=== PATIENT | male | born 1955 | race Caucasian/White ===

== ENCOUNTER 2016-11-09 19:29 | Emergency (ER) | payer MEDICARE, OTHER ==
[~2016-11-09] VITALS: Ht 182.8 cm; Wt 167.8 kg
[~2016-11-09 19:29] MED LIST: COUMADIN6 M2 PO; CRESTOR20 MG PO; DOXYCYCLINE MO100 M1 PO; HYDROCHLOROTHIA25 M1 PO; JANUVIA25 MG PO; LANTUS100 U/ML SC; LEVEMIR10 ML SQ; LEVOTHYROXINE0.05 MG PO; LISINOPRIL10 MG PO; NOVOLIN R100 U/ML SC; NOVOLOG MIX 70/33 ML SC; TRAMADOL50 MG PO; TRICOR145 MG PO; [UNRECOGNIZED DRUG - OTHER] INH
[2016-11-09] MEDS ORDERED: TRAMADOL HYDRO200 MG PO (19:44)
[2016-11-09] MEDS ORDERED: LASIX20 MG PO (19:45)
== END 2016-11-09 22:02 | disposition home or self-care (01) ==
LOC: ED 19:29
DX: G47.30 Sleep apnea, unspecified (principal); R06.00 Dyspnea, unspecified; I48.91 Unspecified atrial fibrillation; E11.9 Type 2 diabetes mellitus without complications; E78.5 Hyperlipidemia, unspecified; I10 Essential (primary) hypertension; E03.9 Hypothyroidism, unspecified; Z79.899 Other long term (current) drug therapy; Z79.01 Long term (current) use of anticoagulants

== ENCOUNTER → 2017-06-06 | Outpatient (CLI) | payer OTHER ==
[~2017-06-06] MED LIST changes: +LASIX20 MG PO; +TRAMADOL HYDRO200 MG PO
== END | disposition home or self-care (01) ==
LOC: CT 10:53
DX: J39.8 Other specified diseases of upper respiratory tract (principal); E11.9 Type 2 diabetes mellitus without complications

== ENCOUNTER 2020-04-12 21:25 | Inpatient (IN) | payer MEDICARE ==
[~2020-04-12] VITALS: Ht 162.6 cm; Wt 194.4 kg
[~2020-04-12 21:25] MED LIST changes: -CRESTOR20 MG PO; +CRESTOR40 M1 PO; -LEVEMIR10 ML SQ; +LEVEMIR100 UNIT/1 SQ
[2020-04-12 21:30] VITALS: BP 135/53
--- NOTE | 2020-04-12 21:40 | NUR ---
Pt placed on a 40% aerosol trach mask with humidity. Pt suctioned for a small amouth of white secretions. Pt is from home and has a #6 Shiley XLT. Duoneb tx given.
--- NOTE | 2020-04-12 22:00 | NUR ---
Trach care done. Pt site cleaned. Area is red underneath the trach site and under the trach ties. Trach ties also changed. Inner cannula changed by in the ER.
[2020-04-12 22:16] LABS: ACT PARTIAL THROMBO TIME 23.6 SECONDS (20.0-32.1); INTERNATIONAL NORM RATIO 1.1 (2.0-3.5)
[2020-04-12 22:23] LABS: ALBUMIN 2.6 gm/dl (3.1-4.5); CREATININE 1.53 mg/dL (0.70-1.30); POTASSIUM 4.7 mmol/L (3.5-5.1); TOTAL PROTEIN 6.9 gm/dL (6.4-8.2)
[2020-04-12 22:25] LABS: TROPONIN I 0.149 ng/ml (<0.045)
[2020-04-12 22:46] LABS: HEMATOCRIT 34.1 % (42.0-52.0); MEAN CELL VOLUME 87.2 fl (80.0-94.0); MEAN CORPUSCULAR HGB 26.6 pg (27.0-31.0); MEAN CORPUSCULAR HGB CONC 30.5 g/dl (33.0-37.0); MEAN PLATELET VOLUME 10.4 fl (9.6-12.3); PLATELET COUNT AUTOMATED 215 10*3/uL (130-400); RED BLOOD COUNT 3.91 10*6/uL (4.50-5.90); RED CELL DISTRI WIDTH 15.3 % (0-14.5); WHITE BLOOD COUNT 25.3 10*3/uL (4.8-10.8)
[2020-04-12 22:58] VITALS: BP 129/76
[2020-04-12 23:04] LABS: PLATELET SUFFICIENCY NORMAL (NORMAL); TOTAL CELLS COUNTED 100 #CELLS
[2020-04-12 23:38] VITALS: BP 113/50
--- NOTE | 2020-04-13 00:25 | NUR ---
SPOKE WITH PATIENT AND AT THIS TIME REGARDING PLACEMENT OF A CATHETER, PER PATIENT NOT SURE IF PATIENT IS GOING TO BE ABLE TO HAVE A CATHETER PLACED DUE TO EDEMA. PATIENT AND DO NOT CURRENTLY WANT TO ATTEMPT TO PLACE CHUNG.
--- NOTE | 2020-04-13 01:32 | NUR ---
HEPARIN AND IV ABX LATE. PATIENT NOT ON THE FLOOR YET. STILL IN ER. WILL ADMINISTER ONCE PATIENT ARRIVES TO FLOOR.
[2020-04-13 02:00] VITALS: BP 104/47
--- NOTE | 2020-04-13 02:00 | NUR ---
A 65, admitted to , under the services of HIEN Goddard DO with a diagnosis of CHF, NSTEMI, ACUTE RESPIRATORY DISTRESS. Chief complaint is RESPIRATORY ILLNESS. Patient arrived via stretcher from ER. Monitor applied. Initial assessment completed. Vital signs taken and recorded. HIEN GODDARD DO notified of admission to the unit. Orders received. See assessment for past medical history, medications and allergies. Patient and/or family oriented to unit. [address] visitation policy reviewed. Clothing/patient valuable form completed. TRACH CARE PERFORMED BY RESPIRATORY THERAPIST, HEPARIN STARTED. JANNETTE RED
--- NOTE | 2020-04-13 02:20 | NUR ---
SIZE 16 CHUNG PLACED BY NURSE ANDREW BEJARANO. PATIENT TOLERATED WELL. YELLOW URINE DRAINING.
--- NOTE | 2020-04-13 02:30 | NUR ---
HEPARIN STARTED. APTT PUT IN FOR 0830 PER PROTOCOL.
[2020-04-13 02:53] LABS: BILIRUBIN NEGATIVE (NEGATIVE); BLOOD 3+ (NEGATIVE); CLARITY CLEAR (CLEAR); COLOR YELLOW (YELLOW); GLUCOSE NEGATIVE (NEGATIVE); KETONE NEGATIVE (NEGATIVE); LEUKO ESTERASE NEGATIVE (NEGATIVE); NITRITE NEGATIVE (NEGATIVE); UROBILINOGEN 0.2 E.U./dl (0.2-1.0)
--- NOTE | 2020-04-13 02:54 | NUR ---
PATIENT DOES NOT KNOW HOME MEDICATIONS. HE STATED TO CALL HIS AND ASK HER WHAT HE TAKES. WILL CALL IN THE MORNING.
[2020-04-13 03:02] LABS: RBC 16-20 rbc/hpf (0-2)
[2020-04-13 03:03] LABS: WBC 0-2 wbc/hpf (0-5)
--- NOTE | 2020-04-13 03:15 | NUR ---
NOTED 2 SKIN TEARS TO PATIENT'S RIGHT CALF DURING ASSESSMENT. PHOTOS TAKEN AND WOUNDS MEASURED. PATIENT HAS REDDENED AREA UNDER GUAZE ON RIGHT SIDE OF TRACH. NO COMPLAINTS AT THIS TIME.
[2020-04-13 03:37] LABS: HEMATOCRIT 34.9 % (42.0-52.0); MEAN CELL VOLUME 89.3 fl (80.0-94.0); MEAN CORPUSCULAR HGB 26.3 pg (27.0-31.0); MEAN CORPUSCULAR HGB CONC 29.5 g/dl (33.0-37.0); MEAN PLATELET VOLUME 11.1 fl (9.6-12.3); PLATELET COUNT AUTOMATED 235 10*3/uL (130-400); RED BLOOD COUNT 3.91 10*6/uL (4.50-5.90); RED CELL DISTRI WIDTH 15.6 % (0-14.5)
[2020-04-13 03:45] LABS: CREATININE 1.71 mg/dL (0.70-1.30); POTASSIUM 4.8 mmol/L (3.5-5.1)
[2020-04-13 03:55] LABS: THYROID STIM HORMONE (HS) 1.72 uIU/ml (0.358-4.75)
--- NOTE | 2020-04-13 03:58 | NUR ---
TYLENOL GIVEN FOR TEMPERATURE OF 101.4 F. WILL ASSESS EFFECTIVENESS.
[2020-04-13 04:00] VITALS: BP 104/47
--- NOTE | 2020-04-13 04:01 | NUR ---
DR. DE LA GARZA NOTIFIED OF CRITICAL TROPONIN OF 0.132
[2020-04-13 04:12] LABS: PLATELET SUFFICIENCY NORMAL (NORMAL); TOTAL CELLS COUNTED 100 #CELLS
--- NOTE | 2020-04-13 04:12 | NUR ---
PATIENT IS UNABLE TO GIVE COMPLETE LIST OF HOME MEDICATIONS. HE STATED TO CALL HIS IN THE MORNING. COMPLETED MED REC MUCH I COULD WITH MEDICATION CLAIM HISTORY.
--- NOTE | 2020-04-13 04:55 | NUR ---
TYLENOL EFFECTIVE. PATIENT'S TEMPERATURE IS 98.0 F
--- NOTE | 2020-04-13 06:00 | NUR ---
DR NOBLE'S ANSWERING SERVICE NOTIFIED OF CONSULT
--- NOTE | 2020-04-13 06:02 | NUR ---
NOTIFIED DR SANCHEZ OF CONSULT.
[2020-04-13 08:00] VITALS: BP 106/62
--- NOTE | 2020-04-13 08:05 | NUR ---
PHYSICAL THERAPY PT screen complete and chart reviewed. PT order received. Will follow. Thank you. Cynthia Sebastian,PT,DPT
--- NOTE | 2020-04-13 08:13 | NUR ---
Nursing screen received and chart reviewed. Patient admitted for acute respiratory distress. If patient has a decline in ADLs, transfers, or functional mobility, please send OT orders. Thank you. Nela Bhatt, OTR/L
--- NOTE | 2020-04-13 08:52 | NUR ---
SAMI ALONZO [id number] Please refer to the physician's history and physical for past medical history, comorbid conditions, and allergies. Diagnosis: CHF,NSTEMI,ACUTE RESIRATORY DISTRESS Pavan Score: 11,VERY HIGH RISK WOUND DESCRIPTIONS: Wound Number: 1 Location of the wound: right medial aspect of foot dry and flaky skin noted. No open areas noted at time of assessment. No drainage noted at time of assessment. Wound Number: 2 Location of the wound: right plantar aspect of foot Type of wound: stage 3 Thickness: Full Size: 5.2cm x 3.0cm x 0.4cm Tunneling: none Undermining: none Sinus Tract: none Presence of Exudate: Serosanguineous Amount: Light Color: Red Odor: None Periwound Skin Appearance: Edema Wound edges: approximated Pain (associated with wound): none at time of assessment How does patient state this happened? pt stated this has been ongoing and follows in [facility] Wound Number: 3 & 4 Location of the wound: left posterior calf Thickness: Full Size: 15.0cm x 7.0cm x 0.1cm Tunneling: none Undermining: none Sinus Tract: none Presence of Exudate: Serosanguineous Amount: None Color: Red Odor: None Periwound Skin Appearance: Edema Wound edges: approximated Pain (associated with wound): none a time of assessment How does patient state this happened? pt stated this has been ongoing and follows in [facility] Wound Number: 5 Location of the wound: abdominal fold Type of wound: fungal Thickness: Partial Size: 14.5cm x 44.0cm x 0.1cm Tunneling: none Undermining: none Sinus Tract: none Presence of Exudate: Serous Amount: Light Color: Red Odor: Musty Periwound Skin Appearance: Normal Wound edges: approximated Pain (associated with wound): none at time of assessment How does patient state this happened? pt states this is ongoing Wound Number: 6 Location of the wound: left breast Type of wound: fungal Thickness: Partial Size: 8.0cm x 25.0cm x 0.1cm Tunneling: none Undermining: none Sinus Tract: none Presence of Exudate: Serous Amount: Light Color: Red Odor: Musty Periwound Skin Appearance: Normal Wound edges: approximated Pain (associated with wound): none at time of assessment How does patient state this happened? pt states this is ongoing Bilateral lower extremities dry and flaky at time of assessment. Yellow and brown in color at time of assessment. no pain at time of assessment. Surface the patient is resting on: Isoflex SKIN PREVENTION RECOMMENDATION: 1. Pressure redistribution support surface as appropriate 2. Elevate heels 3. Remove boots/TEDS every shift and reapply 4. Head of bed 30 degrees as tolerated 5. Assess nutrition and hydration 6. Manage moisture 7. Avoid the use of containment devices while in bed 8. Use absorptive products on surfaces limit layers of linens on bed 9. Turn and reposition every 1-2 hours in bed and every 1 hour in chair as tolerated 10. Weight shifts every 15 minutes while up in chair 11. Offloading with pillows or device to keep heels elevated off bed 12. Monitor skin at least every shift 13. Inspect under medical devices twice a day WOUND TREATMENT RECOMMENDATIONS: Venous and arterial studies due to non-healing wounds Imaging studies to right foot due to non-healing wound. Consult podiatry for areas to bilateral lower extremities. Cleanse bilateral lower extremities with soap and water and apply lac hydrin bid avoid application between toes Cleanse right plantar aspect of foot and left posterior lower extremity with nss and apply therahoney sheet cover with abd pad and light wrap with kerlix daily and prn for soiling. Cleanse left breast and abdominal folds with soap and water pat areas dry then apply nystatin powder every 8 hours.
--- NOTE | 2020-04-13 09:16 | NUR ---
SAMI ALONZO [id number] Please refer to the physician's history and physical for past medical history, comorbid conditions, and allergies. Diagnosis: CHF,NSTEMI,ACUTE RESIRATORY DISTRESS Pavan Score: 11,VERY HIGH RISK WOUND DESCRIPTIONS: Wound Number: 1 Location of the wound: right medial aspect of foot dry and flaky skin noted. No open areas noted at time of assessment. No drainage noted at time of assessment. Wound Number: 2 Location of the wound: right plantar aspect of foot Type of wound: stage 3 Thickness: Full Size: 5.2cm x 3.0cm x 0.4cm Tunneling: none Undermining: none Sinus Tract: none Presence of Exudate: Serosanguineous Amount: Light Color: Red, Yellow Odor: None Periwound Skin Appearance: Edema Wound edges: approximated Pain (associated with wound): none at time of assessment How does patient state this happened? pt stated this has been ongoing and follows in [facility] Wound Number: 3 & 4 Location of the wound: left posterior calf Thickness: Full Size: 15.0cm x 7.0cm x 0.1cm Tunneling: none Undermining: none Sinus Tract: none Presence of Exudate: Serosanguineous Amount: None Color: Red, yellow Odor: None Periwound Skin Appearance: Edema Wound edges: approximated Pain (associated with wound): none a time of assessment How does patient state this happened? pt stated this has been ongoing and follows in [facility] Wound Number: 5 Location of the wound: abdominal fold Type of wound: fungal Thickness: Partial Size: 14.5cm x 44.0cm x 0.1cm Tunneling: none Undermining: none Sinus Tract: none Presence of Exudate: Serous Amount: Light Color: Red Odor: Musty Periwound Skin Appearance: edema Wound edges: approximated Pain (associated with wound): none at time of assessment How does patient state this happened? pt states this is ongoing Wound Number: 6 Location of the wound: left breast Type of wound: fungal Thickness: Partial Size: 8.0cm x 25.0cm x 0.1cm Tunneling: none Undermining: none Sinus Tract: none Presence of Exudate: Serous Amount: Light Color: Red Odor: Musty Periwound Skin Appearance: edema Wound edges: approximated Pain (associated with wound): none at time of assessment How does patient state this happened? pt states this is ongoing Bilateral lower extremities dry and flaky at time of assessment. Yellow and brown in color at time of assessment. no pain at time of assessment. Surface the patient is resting on: Isoflex SKIN PREVENTION RECOMMENDATION: 1. Pressure redistribution support surface as appropriate 2. Elevate heels 3. Remove boots/TEDS every shift and reapply 4. Head of bed 30 degrees as tolerated 5. Assess nutrition and hydration 6. Manage moisture 7. Avoid the use of containment devices while in bed 8. Use absorptive products on surfaces limit layers of linens on bed 9. Turn and reposition every 1-2 hours in bed and every 1 hour in chair as tolerated 10. Weight shifts every 15 minutes while up in chair 11. Offloading with pillows or device to keep heels elevated off bed 12. Monitor skin at least every shift 13. Inspect under medical devices twice a day WOUND TREATMENT RECOMMENDATIONS: Venous and arterial studies due to non-healing wounds Imaging studies to right foot due to non-healing wound. Consult podiatry for areas to bilateral lower extremities. Cleanse bilateral lower extremities with soap and water and apply lac hydrin bid avoid application between toes Cleanse right plantar aspect of foot and left posterior lower extremity with nss and apply therahoney sheet cover with abd pad and light wrap with kerlix daily and prn for soiling. Cleanse left breast and abdominal folds with soap and water pat areas dry then apply nystatin powder every 8 hours.
--- NOTE | 2020-04-13 09:45 | NUR ---
State Trooper in to talk to patient. Patient states lives at home with . There are no steps in the home. Physician: [facility] Pharmacy: Home health services: none Patient's level of ADLs: MINIMAL ASSIST Patient has working utilities: all working DME: walker, home oxygen continuously from [facility], suction machine Follow-up physician's appointment after d/c: will be made by hospitalist nurse director upon discharge Does patient want to access PORTAL?: no Discharge plan discussed with patient's Carolyn, she stated patient lives at home with her, he requires assistance with all adls and uses a walker for ambulation, she stated patient has continuous oxygen, a suction machine and a walker from [facility]. she stated he also follows up weekly to the wound center at [facility]. discussed with her a short term usp for possible iv antibiotics and wound care. stated she would rather patient return home, she stated she administered iv antibiotics to patient in the past and had [facility]. if he would need iv antibiotics again she would like him to have [facility], case management will follow and make referrals [facility]
--- NOTE | 2020-04-13 09:50 | NUR ---
PHYSICAL THERAPY Physical Therapy evaluation completed on 4E with full evaluation to follow. Moderate complexity PT evaluation per chart review and evaluation, [id number]. Recommend physical therapy per plan of care and Home Health with 24hr care/assist upon discharge. Thank you for this referral. Cynthia Sebastian,PT,DPT
--- NOTE | 2020-04-13 10:25 | NUR ---
Dr. Ibarra notified of wound care orders needed.
--- NOTE | 2020-04-13 11:45 | NUR ---
PHYSICAL THERAPY Patient seen this am for therapy visit and was supine in bed with anterior Trach upon therapist arrival. Patient identified by name / and was very pleasant. Patient presented with B LE edema and use of special R LE boot, L LE shoe, while being NWB on R LE. Patient educated on importance on maintaining NWB status on R LE, secondary to patient stating he has been putting his foot down during SPT transfers. Patient able to complete rolling side to side to prepare for draw sheet transfer to Bariatric bed which arrived due to patient not being able to sit up EOB during earlier PT initial evaluation. Patient POC reviewed with patient including short term goals prior to patient safely tolerating transfer to new bed with additional hospital staff members needed, MAX A x 4. Patient reamined in bed under Nursing staff Supervision and will continue per POC as tolerated. Total treatment time 16 minutes. Tristin Fan, HAMMER OPERATOR
[2020-04-13 12:00] VITALS: BP 112/62
[2020-04-13] MEDS ORDERED: KLOR-CON 1010 ME1 PO (12:30)
[2020-04-13] MEDS ORDERED: HUMALOG100 UNIT/1 SQ (12:32)
[2020-04-13 14:20] LABS: ABG BASE EXCESS 2.5 mmol/L (-2.0-2.0); ARTERIAL BLOOD GAS PH 7.368 (7.35-7.45)
[2020-04-13 16:00] VITALS: BP 138/57
[2020-04-13 20:00] VITALS: BP 134/46
--- NOTE | 2020-04-13 20:37 | NUR ---
20:00 PT SUCTIONED AND SPUTUM SAMPLE OBTAINED PER MD ORDER. SAMPLE SENT TO LAB BY NURSE. INNER CANNULA REMOVED AND CHECKED AND TRACH CARE DONE.
--- NOTE | 2020-04-13 21:03 | NUR ---
TYLENOL GIVEN PER PATIENT REQUEST FOR COMPLAINTS OF HEADACHE RATED 5/10. WILL ASSESS EFFECTIVENESS.
--- NOTE | 2020-04-13 22:00 | NUR ---
TYLENOL EFFECTIVE PER PATIENT.
[2020-04-14] VITALS: BP 117/63
--- NOTE | 2020-04-14 01:51 | NUR ---
PATIENT HAD BOWEL MOVEMENT. PATIENT CLEANED UP AND ROLLED ONTO RIGHT SIDE. IV ABX DONE INFUSING. VENTURI MASK ON. NO COMPLAINTS AT THIS TIME. CALL LIGHT WITHIN REACH. WILL CONTINUE TO MONITOR.
--- NOTE | 2020-04-14 03:21 | NUR ---
PT FiO2 WEANED TO 28%, SpO2 100%, RN NOTIFIED
[2020-04-14 06:52] LABS: CREATININE 1.51 mg/dL (0.70-1.30); POTASSIUM 4.4 mmol/L (3.5-5.1)
[2020-04-14 06:53] LABS: BASO % 0.2 % (0.0-1.0); EOS # 0.4 10*3/uL (0.0-0.4); EOS % 2.3 % (1.0-4.0); LYMPH # 0.7 10*3/uL (1.3-4.4); LYMPH % 4.8 % (27.0-41.0); MEAN CELL VOLUME 89.7 fl (80.0-94.0); MEAN CORPUSCULAR HGB 26.4 pg (27.0-31.0); MEAN CORPUSCULAR HGB CONC 29.4 g/dl (33.0-37.0); MEAN PLATELET VOLUME 11.3 fl (9.6-12.3); MONO # 1.1 10*3/uL (0.1-1.0); NEUT # 13.1 10*3/uL (2.3-7.9); NEUT % 85.2 % (47.0-73.0); PLATELET COUNT AUTOMATED 204 10*3/uL (130-400); RED BLOOD COUNT 3.68 10*6/uL (4.50-5.90); RED CELL DISTRI WIDTH 15.7 % (0-14.5); WHITE BLOOD COUNT 15.4 10*3/uL (4.8-10.8)
--- NOTE | 2020-04-14 07:30 | NUR ---
PT RESTING IN BED. VOICES NO CONCERNS AT THIS TIME. RESPS EASY AND NON LABORED. NO S/S OF DISTRESS NOTED. PT A LITTLE TACHYPNEIC. VSS. WHITE BOARD UPDATED. BED ALARM ON. CALL LIGHT WITHIN REACH. 35% VENTURI TO TRACH.TROUBLE SPEAKING D/T TRACH. POC DISCUSSED W PT. ANASARCA NOTED. WOUNDS TO BLE-AWAITING PODIATRY TO SEE PT.
[2020-04-14 08:00] VITALS: BP 120/66
--- NOTE | 2020-04-14 08:25 | NUR ---
PHYSICAL THERAPY Patient seen this am 1;1 for therapy visit and was observed positioned Poorly, supine in bed upon therapist arrival. Patient identified by name / and presented with continuos O2-12L thru anterior Trach. Patient reports no new c/o's and was able to roll to L side for patient care, then transfers supine to sit EOB with MOD A. Patient tolerated static EOB sit x 15 minutes, CGA then performed several sit to stand transfers, MIN A x 2, use of wh walker standing support. Patient is NWB on R LE, use of protective Boot on R LE and L Diabetic shoe. Patient was non compliant this session with NWB status R LE, receiving multiple v/c's while side stepping to L side 3-4 steps for pre bed positioning. Patient returned to supine in bed with call light, tray table, telephone and bed side rail raised while tolerating all treatment, voicing no new c/o's. Will continue per POC as tolerated, total treatment time 23 minutes. Tristin Fan, BATH MIXER
--- NOTE | 2020-04-14 08:50 | NUR ---
OT NOTE Pt was seen this A.M. 1:1 for 20 minute OT session. Upon arrival pt was sitting upright on the EOB. Pt identified by name and and presented to therapy with 12L via trach which remained in place throughout the entire session. While sitting EOB pt's R custom boot was donned with maxA and L diabetic shoe with maxA. Pt completed multiple sit to stand transfers from bed level with Lizandro X 2 and use of w/w for UE support. Challenged pt's static standing tolerance needed for increased I in self care tasks and functional transfers, pt was able to tolerate aprox 45-60 seconds at a time before sitting due to fatigue. Throughout all standing tasks pt was 100% non compliant with NWB to RLE. Challenged pt's dynamic sitting balance while weight shifting and reaching over all planes and pt was able to maintain F+/G- sitting balance throughout. Pt tolerated sitting EOB for aprox 15 mintues. Pt then transferred back into bed sit to supine with Lizandro where he was left with call light in hand, tray table in place, and bed rails up for safety. Continue with POC as able. KALIA Meneses/Luz
--- NOTE | 2020-04-14 09:00 | NUR ---
case management visits with patient, he will return home with when discharged. denies any home service needs at this time, case management will follow
--- NOTE | 2020-04-14 10:56 | NUR ---
MEDICATION EFFECTIVE PER PT
[2020-04-14 12:00] VITALS: BP 140/68
--- NOTE | 2020-04-14 13:05 | NUR ---
PT AND UNSURE IF THEY WANT TO HAVE THE BRONCHOSCOPY TOMORROW. ATTEMPTING TO REACH AT THIS TIME WITH NO ANSWER. PER DR SANCHEZ IF THEY DO NOT WANT TO THAT IS OKAY AND TO CANCEL IT.
--- NOTE | 2020-04-14 13:39 | NUR ---
SPOKE WITH REGARDING PROCEDURE TOMORROW. STATES SHE IS GOING TO CALL [facility] TO SEE IF THEY CAN MOVE HIS APPT UP SO THAT HE DOES NOT HAVE TO HAVE THE PROCEDURE TOMRROW. STATES SHE WILL CALL BACK WHEN SHE FINDS OUT.
--- NOTE | 2020-04-14 15:36 | NUR ---
FAMILY UPDATED ON POC. QUESTIONS ANSWERED
--- NOTE | 2020-04-14 15:42 | NUR ---
PHONE CONSENT OBTAINED FOR BRONCHOSCOPY TOMORROW W CLARISSA ALONZO. VERIFIED W TWO RNS
[2020-04-14 16:00] VITALS: BP 143/65
--- NOTE | 2020-04-14 18:31 | NUR ---
UPDATED ON POC. QUESTIONS ANSWERED
[2020-04-14 20:00] VITALS: BP 138/70
[2020-04-15] VITALS (10 sets, daily range): BP systolic 123–171; BP diastolic 44–76
--- NOTE | 2020-04-15 04:08 | NUR ---
PATIENT CLEANED UP FOR PROCEDURE TODAY. REPOSITIONED IN BED. NO VOICED COMPLAINTS AT THIS TIME. CALL LIGHT IN REACH. WILL CONTINUE TO MONITOR.
[2020-04-15 05:55] LABS: BASO % 0.3 % (0.0-1.0); EOS # 0.5 10*3/uL (0.0-0.4); HEMATOCRIT 33.1 % (42.0-52.0); LYMPH # 0.7 10*3/uL (1.3-4.4); LYMPH % 6.3 % (27.0-41.0); MEAN CORPUSCULAR HGB 25.8 pg (27.0-31.0); MEAN PLATELET VOLUME 11.5 fl (9.6-12.3); MONO # 0.9 10*3/uL (0.1-1.0); MONO % 7.7 % (3.0-9.0); NEUT # 9.2 10*3/uL (2.3-7.9); NEUT % 81.2 % (47.0-73.0); PLATELET COUNT AUTOMATED 199 10*3/uL (130-400); RED BLOOD COUNT 3.72 10*6/uL (4.50-5.90); RED CELL DISTRI WIDTH 15.5 % (0-14.5); WHITE BLOOD COUNT 11.3 10*3/uL (4.8-10.8)
--- NOTE | 2020-04-15 06:09 | NUR ---
SPOKE WITH DR DE LA GARZA ABOUT PATIENT'S IV STATUS. NOTIFIED HER THAT PATIENT'S RIGHT ANTECUBITAL IV MAY NOT HOLD UP AND THAT THE PATIENT IS GOING DOWN FOR BROCHOSCOPY TODAY. DR DE LA GARZA STATED THAT SURGERY WOULD NEED TO TAKE CARE OF IT. MULTIPLE ATTEMPTS AT ANOTHER IV FAILED.
[2020-04-15 06:50] LABS: BUN 35 mg/dl (7-24); CHLORIDE 104 mmol/L (98-107); CREATININE 1.38 mg/dL (0.70-1.30); SODIUM 139 mmol/L (136-145)
--- NOTE | 2020-04-15 07:30 | NUR ---
PT RESTING IN BED. RESPS EASY AND NON LABORED. NO S/S OF DISTRESS NOTED. VSS. WHITE BOARD UPDATED. OXYGEN INTACT. TRACH SITE C/D/I. POC DISCUSSED W PT. CALL LIGHT WITHIN REACH.
--- NOTE | 2020-04-15 07:32 | NUR ---
Shift chart check completed.
--- NOTE | 2020-04-15 07:38 | NUR ---
PT TAKEN OFF FLOOR FOR PROCEDURE. WILL ATTEMPT TO NOTIFY PER HER REQUEST
--- NOTE | 2020-04-15 09:00 | NUR ---
case management attempted to visit with patient, patient out of room for bronch, patient's would like patient to return home when able, she denies any home needs at this time, case management will follow
--- NOTE | 2020-04-15 10:30 | NUR ---
PT ARRIVED BACK FROM SURGERY. SPO2 WAS IN THE 80'S ON CURRENT SETTINGS. ENCOURAGED PT TO DEEP BREATH AND COUGH. RESPIRATORY IN TO SEE PT. ADJUSTED SETTING TO 12L AND 50% FIO2. SPO2 CURRENTLY 95%. RESPS EASY AND NON LABORED. SITTING UP IN BED. ASKED NURSE TO CALL . ALL OTHER VITALS STABLE. NO S/S OF DISTRESS. PT REQUESTING SOMETHING TO EAT AT THIS TIME.
--- NOTE | 2020-04-15 10:51 | NUR ---
PT UPDATED. QUESTIONS ANSWERED.
--- NOTE | 2020-04-15 11:14 | NUR ---
SPOKE W DR MCARTHUR WHO STATES HE CAN SEE THE PT TOMORROW, BUT IF DR GOULD WANTS A STRESS TEST DONE THAT IS FINE FOR TODAY
--- NOTE | 2020-04-15 12:30 | NUR ---
PHYSICAL THERAPY Patient seen this pm 1:1 for therapy visit and was resting supine in bed upon therapist arrival. Patient identified by name / and presented with continous O2=12L via anterior Trach. Patient reports no c/o's pain this afternoon, however stated he did not sleep much last night in anticipation of early am medical procedure. Patient reports feeling very tired / weak and did not feel he had the energy to sit EOB. Patient agreed to and performed supine B LE therex, all planes, 2 x 10 reps each for LE strengthening / ROM. Patient tolerated all treatment voicing no new c/o's and also presented with B LE gauze foot / ankle wraps secondary to wound care. Patient remained in bed with call light, tray table, telephone and all bed rails raised. Will continue per POC as tolerated, total treatment time 16 minutes. Tristin Fan, FOOT WORKER
--- NOTE | 2020-04-15 12:45 | NUR ---
OT NOTE Pt was seen this P.M. 1:1 for 15 minute OT session. Upon arrival pt was supine in bed. Pt identified by name and and had complaints of fatigue due to not sleeping last night and having a procedure this morning. Pt presented to therapy with 12L-O2 via Trach. Pt declined to sit EOB and participate in any out of bed activity however did agree to ROM to BUE. AROM to his RUE and AAROM to his LUE shoulder, elbow, wrsit, and digit joints over all planes of motion for 1 X 10 to increase and restore maximum functional use. Pt was left supine in bed with bed rails up, call light in hand, and tray table in place. Continue POC as able. KALIA Meneses/Luz
--- NOTE | 2020-04-15 13:11 | NUR ---
PER DR SANCHEZ AND SHIFT DIRECTOR IS ALLOWED TO COME VISIT.
--- NOTE | 2020-04-15 14:00 | NUR ---
PTS IN TO SEE HIM. RESTING IN BED. RESPS EASY AND NON LABORED. NO S/S OF DISTRESS. VSS. CALL LIGHT WITHIN REACH.
--- NOTE | 2020-04-15 19:24 | NUR ---
NURSES AID STATES THAT PATIENT IS STRUGGLING TO BREATH. ON ENTRANCE TO ROOM PATIENT IS SATING 97% ON 50% FI02. DOESN'T APPEAR TO BE IN A LOT OF DISTRESS. RESPIRATORY CALLED, STATES THEY WILL BE DOWN TO SEE PATIENT AND SUCTION IF NEEDED.
--- NOTE | 2020-04-15 20:17 | NUR ---
19:40 PT WEANED FROM 50% TO 35% ON ASAF. SpO2 99% RN NOTIFIED.
--- NOTE | 2020-04-15 20:19 | NUR ---
19:45 TRACH SITE CLEANED AND NEW DRESSING PLACED UNDER FLANGE. INNER CANNULA REMOVED AND CHECKED. PT SUCTIONED USING 5CC OF NORMAL SALINE. SECRETIONS WERE MODERATE, THICK, EUBANKS.
--- NOTE | 2020-04-15 22:02 | NUR ---
TYLENOL ADMINISTERED AT THIS TIME PER PT REQUEST TO "HELP HIM SLEEP". DENIES ANY PAIN OR [id number]. WILL CONTINUE TO MONITOR.
--- NOTE | 2020-04-15 22:55 | NUR ---
PT ASLEEP AT THIS TIME. NO SIGNS OF DISCOMFORT OR DISTRESS NOTED. WILL CONTINUE TO MONITOR.
--- NOTE | 2020-04-15 23:32 | NUR ---
PT REQUESTING SUCTIONED AT THIS TIME. ADEEL FROM RESPIRATORY NOTIFIED.
[2020-04-16] VITALS: BP 125/56
--- NOTE | 2020-04-16 01:49 | NUR ---
ANY FROM RESPIRATORY NOTIFIED OF PT REQUEST TO BE SUCTIONED. STATES SOMEONE WILL BE UP.
--- NOTE | 2020-04-16 02:21 | NUR ---
PT SUCTIONED PER HIS REQUEST. MODERATE, THICK, CREAM COLORED SECRETIONS. SpO2 97% ON 35% ASAF. TRACH SITE CLEAN W/GAUZE INTACT.
--- NOTE | 2020-04-16 02:52 | NUR ---
24 HOUR CHART CHECK COMPLETE.
--- NOTE | 2020-04-16 04:20 | NUR ---
PT BAG SUCTIONED PER HIS REQUEST. REMOVED SMALL AMOUNT OF THICK, CREAM SECRETIONS.
--- NOTE | 2020-04-16 04:26 | NUR ---
04/15/20 23:42 PT BAG SUCTIONED AND BREATHING TREATMENT ADMINISTERED PER ORDER. REMOVED MODERATE AMOUNT OF THICK, EUBANKS SECRETIONS. SpO2 97% ON 35% ASAF.
[2020-04-16 06:46] LABS: BASO % 0.2 % (0.0-1.0); EOS # 0.4 10*3/uL (0.0-0.4); EOS % 3.4 % (1.0-4.0); HEMATOCRIT 32.2 % (42.0-52.0); LYMPH # 0.6 10*3/uL (1.3-4.4); MEAN CELL VOLUME 88.2 fl (80.0-94.0); MEAN CORPUSCULAR HGB CONC 29.5 g/dl (33.0-37.0); MEAN PLATELET VOLUME 11.3 fl (9.6-12.3); MONO # 0.8 10*3/uL (0.1-1.0); MONO % 7.4 % (3.0-9.0); NEUT # 8.8 10*3/uL (2.3-7.9); NEUT % 82.1 % (47.0-73.0); PLATELET COUNT AUTOMATED 205 10*3/uL (130-400); RED BLOOD COUNT 3.65 10*6/uL (4.50-5.90); RED CELL DISTRI WIDTH 15.3 % (0-14.5); WHITE BLOOD COUNT 10.7 10*3/uL (4.8-10.8)
[2020-04-16 07:07] LABS: BUN 38 mg/dl (7-24); CHLORIDE 103 mmol/L (98-107); CREATININE 1.43 mg/dL (0.70-1.30); POTASSIUM 4.3 mmol/L (3.5-5.1); SODIUM 139 mmol/L (136-145)
--- NOTE | 2020-04-16 07:15 | NUR ---
SUCTIONED PER PT REQUEST.
[2020-04-16 08:00] VITALS: BP 145/90
--- NOTE | 2020-04-16 08:05 | NUR ---
PHYSICAL THERAPY Patient seen this am 1;1 for therapy visit and was supine in bed with continuos O2-12L via Trach. Patient identified by name / and reports no c/o's pain, presenting with B LE foot / ankle gauze wraps. OT household personal assistant was also present for observation this session as patient transfers supine to sit EOB with MOD A. Patient tolerated static EOB sit x 12 minutes, SBA and was able to complete several seated B LE therex, including LAQ / marching. Patient also able to take 4-5 side steps to L side for pre bed positioning and returned to supine in bed MOD A. Patient remained in bed with call light, tray table, telephone and bed side rails raised. Will continue per POC as tolerated, total treatment time 18 minutes. Tristin Fan, PETAL SHAPER HAND
--- NOTE | 2020-04-16 08:20 | NUR ---
OT NOTE Pt was seen this A.M. 1:1 for 25 minute OT session. Upon arrival pt was supine in bed. Pt identified by name and and had no complaints at this time. Pt presented to therapy with 12L-O2 via Trach. Pt transferred supine to sit EOB with modA for assist with UB and BLE's. While sitting EOB pt completed AROM to his RUE and AAROM to his LUE over all planes of motion for 1 X 10 to increase and restore maximum functional use. While sitting EOB pt required maxA for donning socks and L diabetic shoe and R boot. Pt completed sit to stand from bed level with Lizandro X 2 and use of w/w for UE support. Challenged pt's static standing tolerance needed for increased I in self care tasks and functional transfers, pt was able to tolerate aprox 60 seconds before sitting due to fatigue. Throughout all standing activity pt was 100% non compliant with NWB to RLE. Pt tolerated sitting EOB for aprox 20 mintues before laying back down. Pt transferred sit to supine with modA for assist with BLE's and was repositioned with maxA X 2. Pt was left supine in bed with call light in hand, tray table in place, and bed rails up for safety. Continue with rec D/C plan to home with home health. KALIA Meneses/Luz
--- NOTE | 2020-04-16 09:00 | NUR ---
case management visits with patient, patient will return home when , denies any home needs at this time, case management will follow
--- NOTE | 2020-04-16 11:30 | NUR ---
PATIENT SUCTIONED AND INNER CANNULA CHANGED PER PATIENT REQUEST. TRACH AREA CLEANED, PATIENT REFUSES SPLIT GAUZE.
[2020-04-16 12:00] VITALS: BP 142/78
--- NOTE | 2020-04-16 12:20 | NUR ---
SIMON, UPHOLSTERER [employer]SEMBLY LINE, STATES OK FOR TO VISIT.
--- NOTE | 2020-04-16 14:28 | NUR ---
OT NOTE Pt was seen this P.M. 1:1 for second OT session consisting of 20 minutes. . Upon arrival pt was supine in bed. Pt identified by name and and had no complaints at this time. Pt presented to therapy with 8L-O2 via trach. Pt transferred supine to sit EOB with modA for assist with UB. While sitting EOB pt's R boot and L diabetic shoe was donned with maxA. Sit to stand completed from bed level with Lizandro X 2 and use of w/w for UE support. Standing pivot then completed from the EOB to the transport bed with CGA and use of w/w. There pt transferred sit to supine with modA for assist with BLE's. Pt was left under transport supervision. Continue with rec D/C plan to return home with home health. KALIA Meneses/Luz
[2020-04-16 16:00] VITALS: BP 164/59
--- NOTE | 2020-04-16 16:00 | NUR ---
IN ROOM, QUESTIONS ANSWERED.
--- NOTE | 2020-04-16 18:55 | NUR ---
24 HR chart check completed.
[2020-04-16 20:00] VITALS: BP 153/64
--- NOTE | 2020-04-16 20:30 | NUR ---
PATIENT IN ROOM WITH PATIENT. PATIENT VOICES NO COMPLAINTS AT THIS TIME. PATIENTS REQUESTING PATIENT BE MEDICATED WITH TYLENOL TO HELP HIM SLEEP.
--- NOTE | 2020-04-16 21:00 | NUR ---
PATIENT JUST NOW LEAVING.
--- NOTE | 2020-04-16 21:07 | NUR ---
PATIENT MEDICATED WITH PRN TYLENOL FOR GENERALIZED DISCOMFORT AND TO HELP SLEEP. PATIENT TOLERATED TAKING MEDICATIONS WELL. PATIENT DENIES ANY OTHER COMPLAINTS. WILL CONTINUE TO MONITOR.
[2020-04-17] VITALS: BP 129/74
--- NOTE | 2020-04-17 04:00 | NUR ---
PATIENT SLEEPING, NO SIGNS OF DISTRESS. RESPIRATIONS EASY, NON LABORED. TRACH MASK IN PLACE. FIO2 35%. BED IN LOWEST POSITION,CALL LIGHT WITHIN REACH. WILL CONTINUE TO MONITOR.
[2020-04-17 06:21] LABS: BUN 39 mg/dl (7-24); CHLORIDE 105 mmol/L (98-107); CREATININE 1.34 mg/dL (0.70-1.30); POTASSIUM 4.2 mmol/L (3.5-5.1); SODIUM 141 mmol/L (136-145)
[2020-04-17 06:25] LABS: BASO % 0.4 % (0.0-1.0); EOS # 0.9 10*3/uL (0.0-0.4); EOS % 8.2 % (1.0-4.0); LYMPH # 0.9 10*3/uL (1.3-4.4); LYMPH % 8.7 % (27.0-41.0); MEAN CELL VOLUME 90.2 fl (80.0-94.0); MEAN CORPUSCULAR HGB CONC 28.8 g/dl (33.0-37.0); MEAN PLATELET VOLUME 11.5 fl (9.6-12.3); MONO # 0.8 10*3/uL (0.1-1.0); MONO % 7.9 % (3.0-9.0); NEUT # 7.6 10*3/uL (2.3-7.9); PLATELET COUNT AUTOMATED 247 10*3/uL (130-400); RED BLOOD COUNT 3.66 10*6/uL (4.50-5.90); RED CELL DISTRI WIDTH 15.6 % (0-14.5); WHITE BLOOD COUNT 10.4 10*3/uL (4.8-10.8)
[2020-04-17 08:00] VITALS: BP 170/80
[2020-04-17 09:00] VITALS: BP 156/76
--- NOTE | 2020-04-17 10:35 | NUR ---
PHYSICAL THERAPY Patient seen this am 1;1 for therapy visit and was supine in bed upon therapist arrival. Patient identified by name / and presented with B LE gauze wraps secondary to wound care, plus continuous O2-10L via Trach. Patient reports no new c/o's and requested transfer to EOB sit, MOD A, while tolerating apporox 20 minutes, tolerating EOB sit, Supervision. Patient able to complete B LE therex, all planes x 10 reps each, then performed several sit to stand transfers, MIN A x 2. Patient also able to side step each direction 2-3 steps, use of wh walker standing support, CGA x 1. Patient tolerated approx 90 seconds static stand each trial and returned to supine in bed with MOD A x 2, requiring therapist assist with B MINA's, HOB positioning. Patient remained in bed with call light, tray table, telephone and bed side rails raised. Will continue per POC as tolerated, total treatment time 23 minutes. Tristin Fan, STEVEDORING SUPERVISOR
--- NOTE | 2020-04-17 10:50 | NUR ---
OT NOTE Pt was seen this A.M. 1:1 for 25 minute OT session. Upon arrival pt was supine in bed. Pt identified by name and and had no complaints at this time. Pt presented to therapy with 10L-O2 via trach. Pt transferred supine to sit EOB with modA for assist with UB. Pt sat EOB while completing AROM to RUE and AAROM to LUE over all planes of motion for 1 X 10. Pt's R boot and L diabetic shoe was donned with maxA. Pt completed multiple sit to stand transfers from bed level with Lizandro X 2 and use of w/w for UE support. Challenged pt's static standing tolerance needed for increased I and enhanced endurance, pt was able to tolerate aprox 3-4 minutes at a time before sitting due to fatigue. Throughout pt was non compliant with NWB to RLE. Pt then transferred back into bed sit to supine with modA for assist with BLE's. There he was left with call light in hand, tray table in place, and bed rails up for safety. Continue with rec D/C plan to home with home health. KALIA Meneses/Luz
[2020-04-17 11:41] LABS: ACID FAST SPEC PROCESSING Concentration (.)
[2020-04-17 12:00] VITALS: BP 168/68
--- NOTE | 2020-04-17 12:17 | NUR ---
SPOKE WITH AND UPDATED HER ON PATIENTS CONDITION.
--- NOTE | 2020-04-17 12:17 | NUR ---
SPOKE WITH AND STATES PATIENT IS OK TO GO FROM HIS STANDPOINT AND RECCOMMENDED AND ANTIBIOTIC FOR DC. NOTIFIED.
--- NOTE | 2020-04-17 12:43 | NUR ---
OCCUPATIONAL THERAPY CO-SIGN I approve of the Occupational Therapy notes written above. MINDA MUJICA, OTR/L
--- NOTE | 2020-04-17 12:56 | NUR ---
PHYSICAL THERAPY CO-SIGN I approve of the Physical Therapy notes written above. Janell Huitron PT
--- NOTE | 2020-04-17 13:00 | NUR ---
PHYSICAL THERAPY Patient seen this pm for second therapy visit per request and was supine in bed upon therapist arrival. Patient identified by name / and presented once again with Trach 02-10L. Patient transfers supine to sit EOB with MOD A and needed therapist assist to ELIAN R boot / L Diabetic shoe. Patient performed several sit to stand transfers, MIN A and use of wh walker standing support, tolerating approx 1 minute static stand each trial. Patient needed seated rest break between transfer attempts and was able to take 4-5 side steps each direction, but unable to straight line gait secondary to Trach hose limitation. Patients was pleased to see patient back up on his feet as patient remained seated EOB upon completion of all therapy with call light. Will continue per POC as tolerated, total treatment time 18 minutes. Tristin Fan, BOILER HELPER
[2020-04-17] MEDS ORDERED: KEFLEX500 M1 PO (13:47)
[2020-04-17] MEDS ORDERED: FUROSEMIDE40 MG PO (13:47)
--- NOTE | 2020-04-17 13:59 | NUR ---
PATIENT REFUSED DISCHARGE WOUND PHOTOS. PATIENT STATES HIS LEGS HAVE ALREADY BEEN WRAPPED BY PODIATRY TODAY AND HE DOESN'T WANT TO WAIT ANY LONGER FOR DISCHARGE PHOTOS HE FEELS IT IS NOT NECESSARY.
--- NOTE | 2020-04-17 14:56 | NUR ---
Discharge instructions reviewed with patient/family. Patient receptive and verbalizes understanding. Follow-up care arranged. Written instructions given to patient/family. IV AND CHUNG REMOVED. PATIENT LEFT IN CARE OF HIS . NAIF CABRALES
== END 2020-04-17 14:56 | disposition home or self-care (01) | DRG 280 ==
LOC: ED 21:25 → EDHOLD 23:51 → 4E 23:51
PROVIDERS: Emergency Medicine; Family Medicine; Internal Medicine; Internal Medicine Critical Care Medicine; Student in an Organized Health Care Education/Training Program; ADMIT Internal Medicine
PROC: 0BC18ZZ Extirpation of Matter from Trachea, Via Natural or Artificial Opening Endoscopic (ICD-10-PCS; principal; 2020-04-15)
PROC: 0BCB8ZZ Extirpation of Matter from Left Lower Lobe Bronchus, Via Natural or Artificial Opening Endoscopic (ICD-10-PCS; principal; 2020-04-15)
PROC: 0BC58ZZ Extirpation of Matter from Right Middle Lobe Bronchus, Via Natural or Artificial Opening Endoscopic (ICD-10-PCS; principal; 2020-04-15)
PROC: 0BC38ZZ Extirpation of Matter from Right Main Bronchus, Via Natural or Artificial Opening Endoscopic (ICD-10-PCS; principal; 2020-04-15)
PROC: 0BC68ZZ Extirpation of Matter from Right Lower Lobe Bronchus, Via Natural or Artificial Opening Endoscopic (ICD-10-PCS; principal; 2020-04-15)
PROC: 0BC88ZZ Extirpation of Matter from Left Upper Lobe Bronchus, Via Natural or Artificial Opening Endoscopic (ICD-10-PCS; principal; 2020-04-15)
PROC: 0BC98ZZ Extirpation of Matter from Lingula Bronchus, Via Natural or Artificial Opening Endoscopic (ICD-10-PCS; principal; 2020-04-15)
PROC: 0BC78ZZ Extirpation of Matter from Left Main Bronchus, Via Natural or Artificial Opening Endoscopic (ICD-10-PCS; principal; 2020-04-15)
PROC: 0BC48ZZ Extirpation of Matter from Right Upper Lobe Bronchus, Via Natural or Artificial Opening Endoscopic (ICD-10-PCS; principal; 2020-04-15)
DX: I21.4 Non-ST elevation (NSTEMI) myocardial infarction (principal); J18.9 Pneumonia, unspecified organism; J96.21 Acute and chronic respiratory failure with hypoxia; J96.22 Acute and chronic respiratory failure with hypercapnia; I50.33 Acute on chronic diastolic (congestive) heart failure; N17.0 Acute kidney failure with tubular necrosis; I13.0 Hypertensive heart and chronic kidney disease with heart failure and stage 1 through stage 4 chronic kidney disease, or unspecified chronic kidney disease; E44.0 Moderate protein-calorie malnutrition; R65.10 Systemic inflammatory response syndrome (SIRS) of non-infectious origin without acute organ dysfunction; J95.00 Unspecified tracheostomy complication; Z68.43 Body mass index [BMI] 50.0-59.9, adult; D64.9 Anemia, unspecified; E78.5 Hyperlipidemia, unspecified; E11.622 Type 2 diabetes mellitus with other skin ulcer; L98.499 Non-pressure chronic ulcer of skin of other sites with unspecified severity; E03.9 Hypothyroidism, unspecified; E55.9 Vitamin D deficiency, unspecified; J40 Bronchitis, not specified as acute or chronic; E11.65 Type 2 diabetes mellitus with hyperglycemia; B95.61 Methicillin susceptible Staphylococcus aureus infection as the cause of diseases classified elsewhere; E11.51 Type 2 diabetes mellitus with diabetic peripheral angiopathy without gangrene; I87.2 Venous insufficiency (chronic) (peripheral); E66.01 Morbid (severe) obesity due to excess calories; G47.33 Obstructive sleep apnea (adult) (pediatric); N18.9 Chronic kidney disease, unspecified

== ENCOUNTER → 2020-08-26 | Outpatient (CLI) | payer MEDICARE ==
[~2020-08-26] MED LIST changes: +FUROSEMIDE40 MG PO; +HUMALOG100 UNIT/1 SQ; +KEFLEX500 M1 PO; +KLOR-CON 1010 ME1 PO
== END | disposition home or self-care (01) ==
LOC: COVID19 08-24 12:00
PROVIDERS: ATTEND Physician Assistant
DX: Z01.818 Encounter for other preprocedural examination (principal); Z20.828 Contact with and (suspected) exposure to other viral communicable diseases

== ENCOUNTER → 2020-11-09 | Outpatient (CLI) | payer MEDICARE | END | disposition home or self-care (01) | LOC: COVID19 15:02 | PROVIDERS: ATTEND Physician Assistant | DX: Z01.818 Encounter for other preprocedural examination (principal); Z20.822 Contact with and (suspected) exposure to COVID-19 ==

== ENCOUNTER → 2021-02-10 | Outpatient (CLI) | payer MEDICARE | END | disposition home or self-care (01) | LOC: COVID19 11:52 | PROVIDERS: ATTEND Physician Assistant | DX: Z01.818 Encounter for other preprocedural examination (principal); Z20.822 Contact with and (suspected) exposure to COVID-19 ==

== ENCOUNTER → 2021-05-04 | Outpatient (CLI) | payer MEDICARE | END | disposition home or self-care (01) | LOC: COVID19 16:00 | PROVIDERS: ATTEND Physician Assistant | DX: Z01.812 Encounter for preprocedural laboratory examination (principal); Z20.822 Contact with and (suspected) exposure to COVID-19 ==

== ENCOUNTER → 2021-08-24 | Outpatient (CLI) | payer MEDICARE | END | disposition home or self-care (01) | LOC: COVID19 15:16 | PROVIDERS: ATTEND Internal Medicine | DX: Z11.52 Encounter for screening for COVID-19 (principal) ==

== ENCOUNTER 2022-08-08 23:43 | Emergency (ER) | payer MEDICARE ==
[~2022-08-08] VITALS: Wt 203.8 kg
== END 2022-08-09 02:00 ==
LOC: ED 23:43
DX: I46.9 Cardiac arrest, cause unspecified (principal); I11.0 Hypertensive heart disease with heart failure; I50.9 Heart failure, unspecified; I25.2 Old myocardial infarction; E11.9 Type 2 diabetes mellitus without complications; I48.91 Unspecified atrial fibrillation; Z79.899 Other long term (current) drug therapy